=== PATIENT | female | born 1980 | race Two or more races ===

== ENCOUNTER 2018-04-06 10:59 | Emergency (ER) | payer MEDICAID ==
[2018-04-06] MEDS ORDERED: Sodium Chloride 0.9% 1,000 ML IV ONE (11:07)
[2018-04-06] MEDS ORDERED: Sodium Chloride 0.9% 2.5 ML Syringe FLUSH PRN (11:07)
[2018-04-06] MEDS ORDERED: Aspirin 81 MG Tab.Chew PO ONE (11:07)
[2018-04-06] MEDS ORDERED: Sodium Chloride 0.9% 10 ML Syringe FLUSH PRN (11:07)
--- NOTE | 2018-04-06 11:12 | EDM.PDOC ---
ED HPI GENERAL MEDICAL PROBLEM - General Chief Complaint: Chest Pain Stated Complaint: CHEST PAIN Time Seen by Provider: 04/06/18 11:05 - History of Present Illness INITIAL COMMENTS - FREE TEXT/NARRATIVE: HISTORY AND PHYSICAL: History of present illness: The patient is a 38-year-old female who has a history of insulin-requiring diabetes but has not had her insulin for one year and presents with complaints of palpitations/heart skipping beats on and off since 8 AM this morning. The patient states that she had a normal day yesterday without any systemic complaints and has been eating and drinking normally. She said that she woke this morning after sleeping the entire night without distress or palpitations, she woke and her heart did not feel like it was racing but that it was skipping beats. The patient was not short of breath not lightheaded and she not pass out or blackout and she's had no abdominal pain nausea vomiting. Previously the patient had no history of any trauma and no systemic complaints such as cough fever vomiting diarrhea and ate her normal meals yesterday. The patient does admit that she drinks a large amount of caffeine in the form of soda and she also tells me that about 2 years ago she had an episode where she was admitted overnight for an elevated heart rate. She says that at that time she were monitor for 24 hours in the hospital she was given medications to slow her heart rate down and she was discharged without any medications. She has not had a provider seen her in over one year. She denies any thyroid disease. Patient says she is not on oral control Review of systems: As per history of present illness and below otherwise all systems reviewed and negative. Past medical history: As per history of present illness and as reviewed below otherwise noncontributory. Surgical history: As per history of present illness and as reviewed below otherwise noncontributory. Social history: No reported history of drug or alcohol abuse. Family history: As per history of present illness and as reviewed below otherwise noncontributory. Physical exam: General: Well-developed well-nourished overweight female who is nontoxic and speaking clearly and easily in the ED. Vital sounds are noted by me HEENT: Atraumatic, normocephalic, , negative for conjunctival pallor or scleral icterus, mucous membranes moist, throat clear, neck supple, nontender, trachea midline. Lungs: Clear to auscultation, breath sounds equal bilaterally, chest nontender. Heart: S1S2, regular rate and rhythm without any overt murmur. There is no evidence of any ectopy on the monitor on my evaluation nor do I hear any irregular beats. Abdomen: Soft, nondistended, nontender. Negative for masses or hepatosplenomegaly. NABS Pelvis: Stable nontender. Genitourinary: Deferred. Rectal: Deferred. Extremities: Atraumatic, negative for cords or calf pain. Neurovascular unremarkable. No pedal edema or leg asymmetry Neuro: Awake, alert, oriented. Cranial nerves II through XII unremarkable. Cerebellum unremarkable. Motor and sensory unremarkable throughout. Exam nonfocal. Diagnostics: EKG chest x-ray CBC CMP INR troponin TSH UA UCG [employer]rapeutics: IV O2 monitor IV fluids aspirin Patient has refused IV fluids and says she check a low dose aspirin this morning. Patient has been comfortable in the ED and vital signs stable. I discussed all testing results with the patient and the need for follow-up. We discussed her blood sugar and being off medications for a year she said that she did have her hemoglobin A1c tested it is 11 and she knows she needs to get back on medication. I will give her referrals to our clinic and advised her strongly to follow-up if further testing such as a Holter monitor and back on her medications. Impression: Palpitations, diabetes with history of noncompliance Definitive disposition and diagnosis as appropriate pending reevaluation and review of above. chest Pain Score (Numeric/FACES): 8 - Related Data Allergies Allergy/AdvReac Type Severity Reaction Status Date / Time azithromycin [From Zithromax] Allergy Rash Verified 04/06/18 11:02 codeine Allergy Vomiting Verified 04/06/18 11:02 Home Meds: Home Meds Aspirin 81 mg PO DAILY 04/06/18 [History] ED ROS GENERAL - Review of Systems Review Of Systems: ROS reveals no pertinent complaints other than HPI. ED EXAM, GENERAL - Physical Exam Exam: See Below (see dictation) Course - Vital Signs Last Recorded V/S: Last Vital Signs Temp 36.2 C 04/06/18 11:03 Pulse 91 04/06/18 11:03 Resp 18 04/06/18 11:03 BP 142/90 H 04/06/18 11:03 Pulse Ox 99 04/06/18 11:05 - Orders/Labs/Meds Orders: Active Orders 24 hr Category Date Time Status Cardiac Monitoring [RC] . DIRECTED Care 04/06/18 11:05 Active EKG Documentation Completion [RC] STAT Care 04/06/18 11:05 Active Oxygen Therapy, ED [RC] ASDIRECTED Care 04/06/18 11:05 Active Pulse Oximetry [RC] ASDIRECTED Care 04/06/18 11:05 Active Chest 1V Frontal [CR] Stat Exams 04/06/18 11:07 Taken UA W/MICROSCOPIC [URIN] Stat Lab 04/06/18 11:07 Ordered Labs: Laboratory Tests 04/06/18 04/06/18 04/06/18 Range/Units 11:17 11:17 11:17 WBC 8.98 (4.0-11.0) K/uL RBC 4.64 (4.30-5.90) M/uL Hgb 11.8 L (12.0-16.0) g/dL Hct 35.8 L (36.0-46.0) % MCV 77.2 L (80.0-98.0) fL MCH 25.4 L (27.0-32.0) pg MCHC 33.0 (31.0-37.0) g/dL RDW Std Deviation 40.9 (28.0-62.0) fl RDW Coeff of Randy 14 (11.0-15.0) % Plt Count 303 (150-400) K/uL MPV 8.70 (7.40-12.00) fL Neut % (Auto) 75.8 (48.0-80.0) % Lymph % (Auto) 18.4 (16.0-40.0) % Richardson % (Auto) 3.9 (0.0-15.0) % Eos % (Auto) 1.7 (0.0-7.0) % Baso % (Auto) 0.2 (0.0-1.5) % Neut # (Auto) 6.8 H (1.4-5.7) K/uL Lymph # (Auto) 1.7 (0.6-2.4) K/uL Richardson # (Auto) 0.4 (0.0-0.8) K/uL Eos # (Auto) 0.2 (0.0-0.7) K/uL Baso # (Auto) 0.0 (0.0-0.1) K/uL Nucleated RBC % 0.0 /100WBC Nucleated RBCs # 0 K/uL INR 0.93 Sodium 134 L (136-145) mmol/L Potassium 4.2 (3.5-5.1) mmol/L Chloride 101 (98-107) mmol/L Carbon Dioxide 25.5 (21.0-32.0) mmol/L BUN 9 (7.0-18.0) mg/dL Creatinine 0.5 L (0.6-1.0) mg/dL Est Cr Clr Drug Dosing 123.72 mL/min Estimated GFR (MDRD) > 60.0 ml/min Glucose 293 H (74-106) mg/dL Calcium 8.3 L (8.5-10.1) mg/dL Total Bilirubin 0.4 (0.2-1.0) mg/dL AST 12 L (15-37) IU/L ALT 16 (14-63) IU/L Alkaline Phosphatase 99 (46-116) U/L Troponin I < 0.050 (0.000-0.056) ng/mL Total Protein 7.8 (6.4-8.2) g/dL Albumin 3.1 L (3.4-5.0) g/dL Globulin 4.7 H (2.0-3.5) g/dL Albumin/Globulin Ratio 0.7 L (1.3-2.8) TSH 3rd Generation 2.19 (0.36-3.74) uIU/mL HCG, Qual (NEG) 04/06/ Range/Units 11:17 WBC (4.0-11.0) K/uL RBC (4.30-5.90) M/uL Hgb (12.0-16.0) g/dL Hct (36.0-46.0) % MCV (80.0-98.0) fL MCH (27.0-32.0) pg MCHC (31.0-37.0) g/dL RDW Std Deviation (28.0-62.0) fl RDW Coeff of Randy (11.0-15.0) % Plt Count (150-400) K/uL MPV (7.40-12.00) fL Neut % (Auto) (48.0-80.0) % Lymph % (Auto) (16.0-40.0) % Richardson % (Auto) (0.0-15.0) % Eos % (Auto) (0.0-7.0) % Baso % (Auto) (0.0-1.5) % Neut # (Auto) (1.4-5.7) K/uL Lymph # (Auto) (0.6-2.4) K/uL Richardson # (Auto) (0.0-0.8) K/uL Eos # (Auto) (0.0-0.7) K/uL Baso # (Auto) (0.0-0.1) K/uL Nucleated RBC % /100WBC Nucleated RBCs # K/uL INR Sodium (136-145) mmol/L Potassium (3.5-5.1) mmol/L Chloride (98-107) mmol/L Carbon Dioxide (21.0-32.0) mmol/L BUN (7.0-18.0) mg/dL Creatinine (0.6-1.0) mg/dL Est Cr Clr Drug Dosing mL/min Estimated GFR (MDRD) ml/min Glucose (74-106) mg/dL Calcium (8.5-10.1) mg/dL Total Bilirubin (0.2-1.0) mg/dL AST (15-37) IU/L ALT (14-63) IU/L Alkaline Phosphatase (46-116) U/L Troponin I (0.000-0.056) ng/mL Total Protein (6.4-8.2) g/dL Albumin (3.4-5.0) g/dL Globulin (2.0-3.5) g/dL Albumin/Globulin Ratio (1.3-2.8) TSH 3rd Generation (0.36-3.74) uIU/mL HCG, Qual NEGATIVE (NEG) Meds: Medications Discontinued Medications Generic Name Dose Route Start Last Admin Trade Name Freq PRN Reason Stop Dose Admin Aspirin 324 mg 04/06/18 11:07 04/06/18 12:04 Aspirin PO 04/06/18 11:08 Not Given ONETIME ONE Sodium Chloride 1,000 mls @ 999 mls/hr 04/06/18 11:07 04/06/18 12:03 Normal Saline IV 04/06/18 12:07 Not Given STAT ONE Sodium Chloride 10 ml 04/06/18 11:07 Saline Flush FLUSH ASDIRECTED PRN Keep Vein Open Sodium Chloride 2.5 ml 04/06/18 11:07 Saline Flush FLUSH ASDIRECTED PRN Keep Vein Open Departure - Departure Time of Disposition: 12:41 Disposition: Home, Self-Care 01 Condition: Good Clinical Impression: Palpitations - Discharge Information Referrals: PCP,None [Primary Care Provider] - Forms: ED Department Discharge Additional Instructions: The following information is given to patients seen in the emergency department who are being discharged to home. This information is to outline your options for follow-up care. We provide all patients seen in our emergency department with a follow-up referral. The need for follow-up, as well as the timing and circumstances, are variable depending upon the specifics of your emergency department visit. If you don't have a primary care physician on staff, we will provide you with a referral. We always advise you to contact your personal physician following an emergency department visit to inform them of the circumstance of the visit and for follow-up with them and/or the need for any referrals to a consulting specialist. The emergency department will also refer you to a specialist when appropriate. This referral assures that you have the opportunity for followup care with a specialist. All of these measure are taken in an effort to provide you with optimal care, which includes your followup. Under all circumstances we always encourage you to contact your private physician who remains a resource for coordinating your care. When calling for followup care, please make the office aware that this follow-up is from your recent emergency room visit. If for any reason you are refused follow-up, please contact the [facility] emergency department at and ask to speak to the emergency department charge nurse. [facility] Primary care- Internal Medicine and Family [address] [address] Please try to watch your intake of concentrated sweets juices and other sweet foods. Please call and schedule a follow-up appointment in your clinic or one of our clinic physicians in the next few days for further care and evaluation. Please start keeping a journal of your symptoms documenting when you're having the palpitations how long it is lasting and what you are feeling. This journal will help your provider in the clinic to decide the next steps in your care plan. Return to ER as needed and as discussed. Please avoid caffeinated products - My Orders Last 24 Hours: My Active Orders 04/06/18 11:05 Cardiac Monitoring [RC] . DIRECTED EKG Documentation Completion [RC] STAT Oxygen Therapy, ED [RC] ASDIRECTED Pulse Oximetry [RC] ASDIRECTED 04/06/18 11:07 Chest 1V Frontal [CR] Stat UA W/MICROSCOPIC [URIN] Stat - Assessment/Plan Last 24 Hours: My Active Orders 04/06/18 11:05 Cardiac Monitoring [RC] . DIRECTED EKG Documentation Completion [RC] STAT Oxygen Therapy, ED [RC] ASDIRECTED Pulse Oximetry [RC] ASDIRECTED 04/06/18 11:07 Chest 1V Frontal [CR] Stat UA W/MICROSCOPIC [URIN] Stat
[2018-04-06 11:56] LABS: CHLORIDE,CL 101 mmol/L (98-107); SODIUM,NA 134 mmol/L (136-145)
--- NOTE | 2018-04-07 14:44 | CR ---
EXAM DATE: 04/06/18 PATIENT'S AGE: 38 Patient: KOSTA GIVENS Facility: [place], [place] Site . Site : 1980 Study: XRay Chest [id number]/26/2018 11:58:02 AM Ordering Physician: Guadalupe Brooke Final Report: INDICATION: Chest pain. TECHNIQUE: Single view. FINDINGS: Heart size is normal. Lungs are free of infiltrate. There is no pulmonary edema or pneumothorax. No significant pleural fluid is seen. IMPRESSION: Clear chest. Dictated by Tony Dong MD @ 04/06/2018 12:34:01 PM Dictated by: Tony Dong MD @ 04/06/2018 12:34:08 (Electronic Signature) Report Signed by Proxy. [facility]
== END 2018-04-06 12:52 | disposition home or self-care (01) ==
LOC: MW.ED 10:59
DX: R00.2 Palpitations (principal); Z88.5 Allergy status to narcotic agent; Z88.1 Allergy status to other antibiotic agents
CPT/HCPCS: 36415; 71045; 71045-26; 80053; 84443; 84484; 84703; 85025; 85610; 93005; 99284; 99285-25

== ENCOUNTER 2021-08-02 15:30 | Emergency (ER) | payer SELFPAY ==
[2021-08-02] MEDS ORDERED: Lidocaine 2% Viscous Solution 15 ML Cup PO ONE (15:41)
[2021-08-02] MEDS ORDERED: Ondansetron 4 MG Tab.DIS PO ONE (15:41)
[2021-08-02] MEDS ORDERED: Benzocaine 20% Topical Spray UD MUCMEM ONE (15:41)
--- NOTE | 2021-08-02 15:45 | EDM.PDOC ---
ED HPI GENERAL MEDICAL PROBLEM - General Chief Complaint: ENT Problem Stated Complaint: VOMMITING,TOOTH PAIN Time Seen by Provider: 08/02/21 15:31 Source of Information: Reports: Patient History Limitations: Reports: No Limitations - History of Present Illness INITIAL COMMENTS - FREE TEXT/NARRATIVE: HISTORY AND PHYSICAL: History of present illness: Patient is a 41-year-old female who presents to the emergency room with complaints of nausea and vomiting x2 weeks. She states the nausea and vomiting has been intermittent although she is still able to eat and drink appropriately. She has no abdominal pain associated with this. She also noted today she started having some left upper dental pain. She recently finished Augmentin for an infection. She was scheduled to have the tooth removed although was unable to make her appointment. Does plan on following up with dentist soon. Patient denies any fever, chills, headache, change in vision, syncope or near syncope. Denies any chest pain, back pain, shortness of breath or cough. Denies any diarrhea, constipation or dysuria. Has not noted any blood in urine or stool. No recent travel or sick contacts. Review of systems: As per history of present illness and below otherwise all systems reviewed and negative. Past medical history: As per history of present illness and as reviewed below otherwise noncontributory. Surgical history: As per history of present illness and as reviewed below otherwise noncontributory. Social history: See social history for further information Family history: As per history of present illness and as reviewed below otherwise noncontributory. Physical exam: General: Well developed and well nourished 41-year-old female. Alert and orientated x 3. Nontoxic in appearance and in no acute distress. Vital signs are stable and have been reviewed by me. Nursing notes were reviewed. HEENT: Atraumatic, normocephalic, pupils equal and reactive bilaterally, negative for conjunctival pallor or scleral icterus, mucous membranes moist, TMs normal bilaterally, throat clear, neck supple, nontender, trachea midline. No drooling or trismus noted. No meningeal signs. No hot potato voice noted. Lungs: Clear to auscultation bilaterally. No wheezes, rales, or rhonchi. Chest nontender. Normal work of breathing, no accessory muscles used. Heart: S1S2, regular rate and rhythm without overt murmur, gallops, or rubs. No JVD. No peripheral edema Abdomen: Soft, nondistended, nontender. Normoactive bowel sounds. Negative for masses or costovertebral tenderness. Skin: Intact, warm, dry. No lesions or rashes noted. Hematologic: No petechiae or purpra. Mucosa appropriate color and normal nail bed color and refill. Extremities: Atraumatic, moves all extremities per self without difficulty or deficits, negative for cords or calf pain. Neurovascular unremarkable. Neuro: Awake, alert, oriented. Cranial nerves II through XII unremarkable. Cerebellum unremarkable. Motor and sensory unremarkable throughout. Exam nonfocal. Psychiatric: Mood and affect are appropriate. Normal thought process. Answering questions appropriately. Please note that the patient was seen and evaluated during the 2019 SARS-CoV-2 novel coronavirus pandemic period. Community viral transmission is ongoing at time of this encounter and the emergency department is operating under pandemic response procedures. Medical Decision Making: Patient is a 41-year-old female who presents to the emergency room with complaints of nausea and vomiting without abdominal pain x2 weeks. She states the nausea and vomiting is infrequent and not always associated with eating. She does not feel dehydrated stating she is still able to eat and drink appropriately. Upon arrival she is dry heaving. She also states she has been dealing with dental pain of the left upper tooth. Recently finished Augmentin and had not had any problems until today. Does plan on getting the tooth removed. Physical exam is unremarkable. Her abdomen is soft and nontender. We will do basic lab work and give her dental balls for the tooth pain as it does not appear infected at this time. Lab work is unremarkable with the exception of a UTI. Urine culture has been added. We will give her a dose of Rocephin while here. She did tolerate fluids after the Zofran. She feels she will do well at home with oral antibiotics. I have talked with the patient about today's findings, in addition to providing specific details for plan of care. Reassessment at the time of disposition demonstrates that the patient is in no acute distress. The patient is stable for discharge, counseling was provided and we discussed in great detail signs and symptoms that would prompt them to return to the Emergency Department. Medication, follow up and supportive care measures were reviewed and discussed. Voices understanding and is agreeable to plan of care. Denies any further questions or concerns at this time. Diagnostics: CBC, BMP, UA, HCG Therapeutics: Rocephin Prescription: Keflex, Zofran, Tramadol Impression: Dentalgia UTI Plan: 1. You were evaluated today on an emergent basis. Your lab work shows a significant bladder infection (you got a Rocephin IM injection and prescription). 2. You can alternate Tylenol and ibuprofen as needed for pain and fever management. 3. We encourage you to follow up with your dentist for re-evaluation and further care/management. 4. If your symptoms should worsen, new symptoms develop or any of the signs and symptoms we discussed should arise please return to the emergency room or call 911 (if needed). Definitive disposition and diagnosis as appropriate pending reevaluation and review of above. mouth Pain Score (Numeric/FACES): 8 - Related Data Allergies Allergy/AdvReac Type Severity Reaction Status Date / Time azithromycin [From Zithromax] Allergy Rash Verified 08/02/21 15:38 codeine Allergy Vomiting Verified 08/02/21 15:38 Home Meds: Home Meds Long Acting Insulin 28 unit INJECT DAILY 08/02/21 [History] Ondansetron [Zofran ODT] 4 mg PO Q6H PRN #8 tab.dis 08/02/21 [Rx] Short Acting Insulin 20 unit INJECT ASDIRECTED 08/02/21 [History] cephALEXin [Keflex] 500 mg PO BID 5 Days #10 cap 08/02/21 [Rx] lisinopriL [Lisinopril] 5 mg PO DAILY 08/02/21 [History] traMADol [Ultram] 50 mg PO Q4H PRN #15 tab 08/02/21 [Rx] Past Medical History HEENT History: Reports: None Cardiovascular History: Reports: High Cholesterol, Hypertension Respiratory History: Reports: None, Asthma Other Respiratory History: child asthma Gastrointestinal History: Reports: None Genitourinary History: Reports: None [employer] History: Reports: Musculoskeletal History: Reports: None Neurological History: Reports: None Psychiatric History: Reports: Anxiety Endocrine/Metabolic History: Reports: Diabetes, Type II Hematologic History: Reports: None Immunologic History: Reports: None Oncologic (Cancer) History: Reports: None Dermatologic History: Reports: None - Infectious Disease History Infectious Disease History: Reports: Chicken Pox - Past Surgical History Head Surgeries/Procedures: Reports: None HEENT Surgical History: Reports: None Cardiovascular Surgical History: Reports: None Respiratory Surgical History: Reports: None GI Surgical History: Reports: Cholecystectomy Female Surgical History: Reports: None Endocrine Surgical History: Reports: None Neurological Surgical History: Reports: None Musculoskeletal Surgical History: Reports: None Oncologic Surgical History: Reports: None Dermatological Surgical History: Reports: None Social & Family History - Family History Family Medical History: No Pertinent Family History - Caffeine Use Caffeine Use: Reports: None - Recreational Drug Use Recreational Drug Use: No ED ROS GENERAL - Review of Systems Review Of Systems: Comprehensive ROS is negative, except as noted in HPI. ED EXAM, GI/ABD - Physical Exam Exam: See Below (See dictation) Course - Vital Signs Last Recorded V/S: Last Vital Signs Temp 98.2 F 08/02/21 15:36 Pulse 98 08/02/21 15:36 Resp 18 08/02/21 15:36 BP 195/107 H 08/02/21 15:36 Pulse Ox 98 08/02/21 15:36 - Orders/Labs/Meds Orders: Active Orders 24 hr Category Date Time Status CULTURE URINE [MREF] Stat Lab 08/02/21 15:49 Received Labs: Laboratory Tests 08/02/21 08/02/21 08/02/21 Range/Units 15:49 15:49 15:59 WBC 10.28 (4.0-11.0) K/uL RBC 4.21 L (4.30-5.90) M/uL Hgb 11.7 L (12.0-16.0) g/dL Hct 35.0 L (36.0-46.0) % MCV 83.1 (80.0-98.0) fL MCH 27.8 (27.0-32.0) pg MCHC 33.4 (31.0-37.0) g/dL RDW Std Deviation 41.0 (28.0-62.0) fl RDW Coeff of Randy 14 (11.0-15.0) % Plt Count 323 (150-400) K/uL MPV 9.20 (7.40-12.00) fL Neut % (Auto) 73.0 (48.0-80.0) % Lymph % (Auto) 21.5 (16.0-40.0) % [place]son % (Auto) 4.2 (0.0-15.0) % Eos % (Auto) 1.0 (0.0-7.0) % Baso % (Auto) 0.3 (0.0-1.5) % Neut # (Auto) 7.5 H (1.4-5.7) K/uL Lymph # (Auto) 2.2 (0.6-2.4) K/uL Mcpherson # (Auto) 0.4 (0.0-0.8) K/uL Eos # (Auto) 0.1 (0.0-0.7) K/uL Baso # (Auto) 0.0 (0.0-0.1) K/uL Nucleated RBC % 0.0 /100WBC Nucleated RBCs # 0 K/uL Sodium (136-145) mmol/L Potassium (3.5-5.1) mmol/L Chloride (98-107) mmol/L Carbon Dioxide (21.0-32.0) mmol/L BUN (7.0-18.0) mg/dL Creatinine (0.6-1.0) mg/dL Est Cr Clr Drug Dosing mL/min Estimated GFR (MDRD) ml/min Glucose (74-106) mg/dL Calcium (8.5-10.1) mg/dL Urine Color YELLOW Urine Appearance SLT CLOUDY Urine pH 6.0 (5.0-8.0) Ur Specific [place] 1.020 (1.001-1.035) Urine Protein 30 H (NEGATIVE) mg/dL Urine Glucose (UA) NEGATIVE (NEGATIVE) mg/dL Urine Ketones NEGATIVE (NEGATIVE) mg/dL Urine Occult Blood NEGATIVE (NEGATIVE) Urine Nitrite POSITIVE H (NEGATIVE) Urine Bilirubin NEGATIVE (NEGATIVE) Urine Urobilinogen 0.2 (<2.0) EU/dL Ur Leukocyte Esterase NEGATIVE (NEGATIVE) Urine RBC NONE SEEN (0-2/HPF) Urine WBC 0-2 (0-5/HPF) Ur Epithelial Cells RARE (NONE-FEW) Urine Bacteria 3+ H (NEGATIVE) Urine Mucus LIGHT (NONE-MOD) Urine HCG, Qual NEGATIVE (NEGATIVE) 08/02/21 Range/Units 15:59 WBC (4.0-11.0) K/uL RBC (4.30-5.90) M/uL Hgb (12.0-16.0) g/dL Hct (36.0-46.0) % MCV (80.0-98.0) fL MCH (27.0-32.0) pg MCHC (31.0-37.0) g/dL RDW Std Deviation (28.0-62.0) fl RDW Coeff of Randy (11.0-15.0) % Plt Count (150-400) K/uL MPV (7.40-12.00) fL Neut % (Auto) (48.0-80.0) % Lymph % (Auto) (16.0-40.0) % [place] % (Auto) (0.0-15.0) % Eos % (Auto) (0.0-7.0) % Baso % (Auto) (0.0-1.5) % Neut # (Auto) (1.4-5.7) K/uL Lymph # (Auto) (0.6-2.4) K/uL [place] # (Auto) (0.0-0.8) K/uL Eos # (Auto) (0.0-0.7) K/uL Baso # (Auto) (0.0-0.1) K/uL Nucleated RBC % /100WBC Nucleated RBCs # K/uL Sodium 138 (136-145) mmol/L Potassium 3.9 (3.5-5.1) mmol/L Chloride 100 (98-107) mmol/L Carbon Dioxide 24.6 (21.0-32.0) mmol/L BUN 10 (7.0-18.0) mg/dL Creatinine 0.5 L (0.6-1.0) mg/dL Est Cr Clr Drug Dosing 120.01 mL/min Estimated GFR (MDRD) > 60.0 ml/min Glucose 114 H (74-106) mg/dL Calcium 8.6 (8.5-10.1) mg/dL Urine Color Urine Appearance Urine pH (5.0-8.0) Ur Specific [place] (1.001-1.035) Urine Protein (NEGATIVE) mg/dL Urine Glucose (UA) (NEGATIVE) mg/dL Urine Ketones (NEGATIVE) mg/dL Urine Occult Blood (NEGATIVE) Urine Nitrite (NEGATIVE) Urine Bilirubin (NEGATIVE) Urine Urobilinogen (<2.0) EU/dL Ur Leukocyte Esterase (NEGATIVE) Urine RBC (0-2/HPF) Urine WBC (0-5/HPF) Ur Epithelial Cells (NONE-FEW) Urine Bacteria (NEGATIVE) Urine Mucus (NONE-MOD) Urine HCG, Qual (NEGATIVE) Meds: Medications Discontinued Medications Generic Name Dose Route Start Last Admin Trade Name Freq PRN Reason Stop Dose Admin Benzocaine 2 each 08/02/21 15:41 08/02/21 15:51 Benzocaine 20% Topical Blue Eye Ud MUCMEM 08/02/21 15:42 2 each ONETIME ONE Administration Ceftriaxone Sodium 1 gm 08/02/21 16:16 08/02/21 16:36 Ceftriaxone 1 Gm Vial IM 08/02/21 16:17 1 gm ONETIME ONE Administration Lidocaine HCl 15 ml 08/02/21 15:41 08/02/21 15:51 Lidocaine 2% Viscous Solution 15 Ml Cup PO 08/02/21 15:42 15 ml ONETIME ONE Administration Lidocaine HCl 2 ml 08/02/21 16:29 08/02/21 16:36 Lidocaine 1% Pf 2 Ml Sdv INJECT 08/02/21 16:30 2 ml ONETIME ONE Administration Ondansetron HCl 4 mg 08/02/21 15:41 08/02/21 15:51 Ondansetron 4 Mg Tab.Dis PO 08/02/21 15:42 4 mg ONETIME ONE Administration Departure - Departure Time of Disposition: 16:45 Disposition: Home, Self-Care 01 Clinical Impression: UTI (urinary tract infection), Dentalgia - Discharge Information Prescriptions: cephALEXin [Keflex] 500 mg PO BID 5 Days #10 cap traMADol [Ultram] 50 mg PO Q4H PRN #15 tab PRN Reason: Pain Ondansetron [Zofran ODT] 4 mg PO Q6H PRN #8 tab.dis PRN Reason: Nausea Referrals: PCP,None [Primary Care Provider] - Forms: ED Department Discharge Additional Instructions: The following information is given to patients seen in the emergency department who are being discharged to home. This information is to outline your options for follow-up care. We provide all patients seen in our emergency department with a follow-up referral. The need for follow-up, as well as the timing and circumstances, are variable depending upon the specifics of your emergency department visit. If you don't have a primary care physician on staff, we will provide you with a referral. We always advise you to contact your personal physician following an emergency department visit to inform them of the circumstance of the visit and for follow-up with them and/or the need for any referrals to a consulting specialist. The emergency department will also refer you to a specialist when appropriate. This referral assures that you have the opportunity for follow-up care with a specialist. All of these measure are taken in an effort to provide you with optimal care, which includes your follow-up. Under all circumstances we always encourage you to contact your private physician who remains a resource for coordinating your care. When calling for follow-up care, please make the office aware that this follow-up is from your recent emergency room visit. If for any reason you are refused follow-up, please contact the [facility] Emergency Department at and asked to speak to the emergency department charge nurse. [facility] [address] [place] [address] [place] [address] Thank you for choosing the [facility] emergency department in [place] for your medical needs today. It was a pleasure caring for you. Today you were seen in the emergency department for Your prescription was electronically sent to: [facility] Medication/Directions: Tramadol for pain, Keflex for the bladder infection and Zofran for nausea. Please take medications as directed. 1. You were evaluated today on an emergent basis. Your lab work shows a significant bladder infection (you got a Rocephin IM injection and prescription). 2. You can alternate Tylenol and ibuprofen as needed for pain and fever management. 3. We encourage you to follow up with your dentist for re-evaluation and further care/management. 4. If your symptoms should worsen, new symptoms develop or any of the signs and symptoms we discussed should arise please return to the emergency room or call 911 (if needed). Sepsis Event Note (ED) - Evaluation Sepsis Screening Result: No Definite Risk - Focused Exam Vital Signs: Vital Signs Temp Pulse Resp BP Pulse Ox 08/02/21 15:36 98.2 F 98 18 195/107 H 98 - My Orders Last 24 Hours: My Active Orders 08/02/21 15:49 CULTURE URINE [MREF] Stat - Assessment/Plan Last 24 Hours: My Active Orders 08/02/21 15:49 CULTURE URINE [MREF] Stat
[2021-08-02] MEDS ORDERED: cefTRIAXone 1 GM Vial IM ONE (16:16)
[2021-08-02] MEDS ORDERED: Lidocaine 1% PF 2 ML SDV INJECT ONE (16:29)
[2021-08-02 16:34] LABS: BLOOD UREA NITROGEN,BUN 10 mg/dL (7.0-18.0); CARBON DIOXIDE,CO2 24.6 mmol/L (21.0-32.0); CHLORIDE,CL 100 mmol/L (98-107); GLUCOSE RANDOM 114 mg/dL (74-106); POTASSIUM,K 3.9 mmol/L (3.5-5.1); SODIUM,NA 138 mmol/L (136-145)
== END 2021-08-02 17:07 | disposition home or self-care (01) ==
LOC: MW.ED 15:30
DX: N39.0 Urinary tract infection, site not specified (principal); K08.89 Other specified disorders of teeth and supporting structures; E78.00 Pure hypercholesterolemia, unspecified; I10 Essential (primary) hypertension; E11.9 Type 2 diabetes mellitus without complications; Z88.1 Allergy status to other antibiotic agents; Z88.5 Allergy status to narcotic agent; Z79.899 Other long term (current) drug therapy
CPT/HCPCS: 36415; 80048; 81001; 81025; 85025; 87086; 96372; 99284; A9270; J0696; 87088; 87186